=== PATIENT | male | born 1990 | race American Indian/Alaskan Native ===

== ENCOUNTER 2019-12-05 11:32 | Emergency (ER) | payer OTHER ==
[2019-12-05] MEDS ORDERED: ACETAMINOPHEN 325 MG TAB PO ONE (12:11)
[2019-12-05] MEDS ORDERED: FLUORESCEIN 1 MG STRIP OP ONE (12:11)
[2019-12-05] MEDS ORDERED: TETRACAINE 0.5% OPHTH SOLN 4ML OS STA (12:11)
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
--- NOTE | 2019-12-05 13:24 | XRay Report ---
LEFT SHOULDER 3 VIEWS INDICATION / CLINICAL INFORMATION: Trauma COMPARISON: None available. FINDINGS: BONES / JOINT(S): No acute bony injury. Chronic widening at the AC joint. Well-corticated bony fragme nts are seen adjacent to the distal clavicle likely from previous trauma. No significant arthritis. SOFT TISSUES: No significant abnormality. ADDITIONAL FINDINGS: None. Signer Name: Huseyin Veloz MD Signed: 12/05/2019 1:20 PM Workstation Name: [id number]
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
[2019-12-05 13:28] LABS: Bilirubin,Urine NEG (Negative); Blood,Urine NEG (Negative); Color,Urine Colorless (Yellow); Protein,Urine <15 mg/dL mg/dL (Negative); RBC,Urine < 1.0 /HPF (0.0-6.0); Urobilinogen,Urine < 2.0 mg/dL (<2.0); WBC,Urine < 1.0 /HPF (0.0-6.0)
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
[2019-12-05 16:37] VITALS: BP 122/76
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
== END 2019-12-05 17:31 | disposition home or self-care (01) ==
LOC: ED 11:32
DX: S39.011A Strain of muscle, fascia and tendon of abdomen, initial encounter (principal); G44.209 Tension-type headache, unspecified, not intractable; M25.512 Pain in left shoulder; M79.601 Pain in right arm; F17.200 Nicotine dependence, unspecified, uncomplicated; Z91.013 Allergy to seafood; V89.2XXA Person injured in unspecified motor-vehicle accident, traffic, initial encounter; Y93.89 Activity, other specified; Y92.410 Unspecified street and highway as the place of occurrence of the external cause; Y99.8 Other external cause status
CPT/HCPCS: 70450; 71046; 72170; 81001

== ENCOUNTER 2020-10-11 02:38 | Emergency (ER) | payer SELFPAY ==
--- NOTE | 2020-10-11 07:25 | XRay Report ---
EXAMINATION: Left knee radiograph, 2 views, 10/11/2020 CLINICAL INFORMATION: Left knee pain COMPARISON: None. FINDINGS: There is no evidence of acute fracture or focal soft tissue swelling. There are mild tricom partmental degenerative changes. IMPRESSION: 1. Mild bony degenerative changes of the left knee. Signer Name: Lainey Mathews MD Signed: 10/11/2020 7:20 AM Workstation Name: [id number]
[2020-10-11] MEDS ORDERED: IBUPROFEN 800 MG TAB PO ONE (08:50)
--- NOTE | 2020-10-11 08:50 | Emergency Department Report ---
ED Lower Extremity HPI - General Chief Complaint: Extremity Injury, Lower Stated Complaint: KNEE PAIN Time Seen by Provider: 10/11/20 08:15 Source: patient Mode of arrival: Ambulatory Limitations: No Limitations - History of Present Illness Initial Comments: This is a 30-year-old male who states that a month ago he injured injured his left knee while moving furniture. Last night while at work he began limping and he was sent to get his left knee pain evaluated. He denies any recent falls or injuries. He denies any past medical history. He is in no acute distress he has no other complaints patient has not taken any medication for the pain. he recently purchased a knee brace which he is not wearing. Injury: Knee: Left, Right (Left knee pain) Severity: mild Improves With: nothing Worsens With: weight bearing Associated Symptoms: swelling. denies: snap/pop sensation, numbness, tingling - Related Data Previous Rx's Medication Instructions Recorded Last Taken Type methOCARBAMOL [Robaxin TAB] 500 mg PO BID PRN #15 tab 12/05/19 Unknown Rx Naproxen [Naprosyn] 500 mg PO BID PRN #20 tablet 10/11/20 Unknown Rx Allergies Allergy/AdvReac Type Severity Reaction Status Date / Time shellfish derived Allergy Hives Verified 12/05/19 11:44 ED Review of Systems ROS: Stated complaint: KNEE PAIN Other details as noted in HPI Comment: All other systems reviewed and negative Constitutional: no symptoms reported ENT: denies: ear pain, throat pain Cardiovascular: denies: chest pain Endocrine: no symptoms reported Gastrointestinal: denies: abdominal pain Genitourinary: denies: urgency, frequency, hematuria Musculoskeletal: other (Left knee pain) Skin: denies: change in color Neurological: denies: headache ED Past Medical Hx - Past Medical History Previous Medical History?: No - Surgical History Past Surgical History?: No - Social History Smoking Status: Current Every Day Smoker Substance Use Type: None - Medications Home Medications: Home Medications Medication Instructions Recorded Confirmed Last Taken Type methOCARBAMOL [Robaxin TAB] 500 mg PO BID PRN #15 tab 12/05/19 Unknown Rx Naproxen [Naprosyn] 500 mg PO BID PRN #20 tablet 10/11/20 Unknown Rx ED Physical Exam - General Limitations: No Limitations General appearance: alert, in no apparent distress - Head Head exam: Present: atraumatic - Eye Eye exam: Present: normal appearance - ENT ENT exam: Present: normal exam - Neck Neck exam: Present: normal inspection - Respiratory Respiratory exam: Present: normal lung sounds bilaterally - Cardiovascular Cardiovascular Exam: Present: regular rate, normal heart sounds - Extremities Exam Extremities exam: Present: full ROM, tenderness (Left knee tenderness but full range of motion mild swelling noted to the anterior left knee distal pulses intact). Absent: pedal edema, calf tenderness - Back Exam Back exam: Present: normal inspection - Neurological Exam Neurological exam: Present: alert, oriented X3 - Psychiatric Psychiatric exam: Present: normal affect - Skin Skin exam: Present: warm, abrasion (Abrasion noted to the medial lateral left knee with no sign of infection) ED Course Vital Signs 10/11/20 10/11/20 05:42 09:13 Temperature 98.3 F Pulse Rate 77 68 Respiratory 16 16 Rate Blood Pressure 127/79 Blood Pressure 120/60 [Right] O2 Sat by Pulse 98 97 Oximetry - Reevaluation(s) Reevaluation #1: 10/11/20 09:07 X-rays reviewed results reviewed with patient he is in no acute distress patient plans to use his own knee brace ED Lower Extremity MDM - Radiology Data Radiology results: report reviewed Left knee x-ray with no acute findings - Medical Decision Making 30-year-old male injured his knee a month ago while moving furniture. Last night while at work the knee pain worsened which caused him to walk with a limp and he was therefore sent to the emergency room for evaluation of his left knee. Left knee x-ray no acute findings on examination he has a stable knee full range of motion. The plan is to send patient to Ortho to consider MRI for further evaluation of his left knee. Will recommend knee brace rest ice and elevate and anti-inflammatory to relieve pain - Differential Diagnosis Left knee strain contusion of the left knee Critical Care Time: No Critical care attestation.: If time is entered above; I have spent that time in minutes in the direct care of this critically ill patient, excluding procedure time. ED Disposition Clinical Impression: Strain of left knee Qualifiers: Encounter type: initial encounter Qualified Code(s): S86.912A - Strain of unspecified muscle(s) and tendon(s) at lower leg level, left leg, initial encounter Abrasion of knee, left Qualifiers: Encounter type: initial encounter Qualified Code(s): S80.212A - Abrasion, left knee, initial encounter Disposition: TO HOME OR SELFCARE Is pt being admited?: No Does the pt Need Aspirin: No Condition: Stable Instructions: Muscle Strain, [id number], Elastic Bandage and RICE Therapy, Abrasion, [id number] Additional Instructions: The x-ray of your left knee shows no acute findings meaning there is no broken bone or dislocation. Please follow-up with orthopedic doctor if pain persist to consider evaluation for tendon injury. Rest ice and elevate take ibuprofen as prescribed Prescriptions: Naproxen [Naprosyn] 500 mg PO BID PRN #20 tablet PRN Reason: Pain , Severe (7-10) Referrals: PRIMARY CARE, [Primary Care Provider] - 3-5 Days Forms: Work/School Release Form Time of Disposition: 09:10
[2020-10-11 09:14] VITALS: BP 120/60
== END 2020-10-11 09:25 | disposition home or self-care (01) ==
LOC: ED 02:38
DX: S86.912A Strain of unspecified muscle(s) and tendon(s) at lower leg level, left leg, initial encounter (principal); S80.212A Abrasion, left knee, initial encounter; F17.200 Nicotine dependence, unspecified, uncomplicated; Z79.899 Other long term (current) drug therapy; Z91.013 Allergy to seafood; X58.XXXA Exposure to other specified factors, initial encounter; Y93.89 Activity, other specified; Y92.89 Other specified places as the place of occurrence of the external cause; Y99.0 Civilian activity done for income or pay